=== PATIENT | male | born 1940 | race Caucasian/White ===

== ENCOUNTER → 2018-05-06 | Outpatient (CLI) | payer MEDICARE, BC, OTHER ==
[~2018-05-06] MED LIST: ISOVUE-370 76% 100ML VIAL (Q9967) As Ordered
== END ==
LOC: M RAD 13:44
DX: I70.212 Atherosclerosis of native arteries of extremities with intermittent claudication, left leg (principal)
CPT/HCPCS: Q9967

== ENCOUNTER 2018-05-30 10:10 | Inpatient (IN) | payer MEDICARE, BC, OTHER ==
[2018-05-30] MEDS: DESLORATADINE 5 MG TAB (CLARINEX) PO (09:00)
[2018-05-30] MEDS: OMEGA-3 1000MG CAPSULE PO (09:00)
[2018-05-30 10:54] LABS: BASO # 0.1 10^3/uL (0.0-0.2); BASO % 0.2 % (0.0-1.0); HEMATOCRIT 43.2 % (42.0-52.0); HEMOGLOBIN 14.4 g/dl (13.5-17.5); IMMATURE GRANULOCYTE % 0.9 % (0-3.0); LYMPH # 1.1 10^3/uL (1.5-4.5); LYMPH % 3.9 % (24.0-44.0); MEAN CORPUSCULAR HGB CONC 33.3 g/dl (32.0-36.5); MEAN CORPUSCULAR VOLUME 87.1 fl (80.0-96.0); MONO # 1.5 10^3/uL (0.0-0.8); MONO % 5.3 % (0.0-5.0); NEUTROPHILS % 89.7 % (36.0-66.0); PLATELET COUNT, AUTOMATED 258 10^3/uL (150-450); RED BLOOD COUNT 4.96 10^6/uL (4.30-6.10); RED CELL DISTRIBUTION WIDTH 15.9 % (11.5-14.5); WHITE BLOOD COUNT 27.9 10^3/uL (4.0-10.0)
[2018-05-30 11:00] LABS: PROTHROMBIN TIME 15.4 SECONDS (12.1-14.4)
[2018-05-30 11:01] LABS: PARTIAL THROMBOPLASTIN TIME 24.8 SECONDS (25.4-37.6)
[2018-05-30 11:33] LABS: ALBUMIN 3.1 GM/DL (3.2-5.2); ALBUMIN/GLOBULIN RATIO 0.94 (1.00-1.93); ALKALINE PHOSPHATASE 47 U/L (45-117); ALT/SGPT 114 U/L (12-78); ANION GAP 12 MEQ/L (8-16); AST/SGOT 118 U/L (7-37); BILIRUBIN,TOTAL 1.9 MG/DL (0.2-1.0); BLOOD UREA NITROGEN 28 MG/DL (7-18); CALCIUM LEVEL 9.7 MG/DL (8.8-10.2); CARBON DIOXIDE LEVEL 26 MEQ/L (21-32); CHLORIDE LEVEL 96 MEQ/L (98-107); CPK CREATINE PHOSPHOKINASE 201 U/L (39-308); CREATININE FOR GFR 1.93 MG/DL (0.70-1.30); GLOMERULAR FILTRATION RATE 36.2 (>42); GLUCOSE, FASTING 154 MG/DL (70-100); LIPASE 51 U/L (73-393); MB/CK RELATIVE INDEX 5.77 (< OR =4); POTASSIUM SERUM 4.5 MEQ/L (3.5-5.1); SODIUM LEVEL 134 MEQ/L (136-145); TOTAL PROTEIN 6.4 GM/DL (6.4-8.2); TROPONIN I 2.46 NG/ML (< 0.10)
[2018-05-30 11:39] LABS: NEUTROPHILS # 25.1 10^3/uL (1.8-7.7); POSITIVE DIFF POS FLAG
[2018-05-30 11:53] LABS: LACTIC ACID SEPSIS PROTOCOL 2.2 MMOL/L (0.4-2.0)
[2018-05-30 13:12] LABS: KETONE, URINE AUTO RFX TRACE mg/dL (NEGATIVE); LEUKOCYTE ESTERASE UR AUTO RFX NEGATIVE (NEGATIVE); NITRITE, URINE AUTO RFX NEGATIVE (NEGATIVE); RBC, URINE AUTO RFX 1 /HPF (0-3); SPECIFIC GRAVITY UR AUTO RFX 1.027 (1.002-1.035); SQUAM EPITHELIAL CELL UR AURFX 0 /HPF (0-6); WBC, URINE AUTO RFX 3 /HPF (0-3)
[2018-05-30] MEDS: NS 1,000 ML IV ×4 (13:30→23:30)
[2018-05-30] MEDS: PIPERACILLIN/TAZOBACTAM SOD 3.375 GM in D5W MINI-BAG PLUS 50 ML IV ×2 (13:30→21:30)
[2018-05-30] MEDS: HEPARIN SOD (PORCINE) 5000 UNITS/ML VIAL SC ×2 (14:00→21:32)
[2018-05-30] MEDS ORDERED: LIDOCAINE 2% MDV 20 ML VIAL As Ordered (15:40)
[2018-05-30] MEDS ORDERED: DEXTROSE 50% 50 ML SYRINGE IV (15:45)
[2018-05-30] MEDS ORDERED: GLUCAGON FOR INJ 1 MG VIAL (J1610) SC (15:45)
[2018-05-30] MEDS ORDERED: GLUCOSE 4 GM CHEW TABLET PO (15:45)
[2018-05-30] MEDS ORDERED: IPRATROPIUM 0.5MG/ALBUTEROL 2.5MG INH SOL UD 3ML (DUONEB)(J7620) NEB (17:00)
[2018-05-30] MEDS ORDERED: NITROGLYCERIN 0.4 MG SUBL TABLET SL (17:00)
[2018-05-30] MEDS: ACETAMINOPHEN TAB 650MG DOSE (2X325MG) PO (17:01)
[2018-05-30] MEDS: HumaLOG INSULIN (NovoLOG) PER UNIT SC ×2 (17:30→21:00)
[2018-05-30 18:26] LABS: CPK CREATINE PHOSPHOKINASE 270 U/L (39-308); MB/CK RELATIVE INDEX 3.19 (< OR =4); TROPONIN I 4.06 NG/ML (< 0.10)
[2018-05-30 18:39] LABS: CPK CREATINE PHOSPHOKINASE 270 U/L (39-308); MB/CK RELATIVE INDEX 3.11 (< OR =4)
[2018-05-30] MEDS: LEVOTHYROXINE 125MCG TABLET (0.125MG) PO (20:47)
[2018-05-30] MEDS: ADVAIR HFA 115/21MCG INHALER INH (21:26)
[2018-05-30 21:29] LABS: BEDSIDE GLUCOSE 155 MG/DL (83-110)
[2018-05-30] MEDS: ATORVASTATIN 20 MG TAB PO (21:30)
[2018-05-30] MEDS: CLOPIDOGREL 75 MG TAB PO (21:30)
[2018-05-30] MEDS: MULTIVITAMINS/MINERALS THERAP 1 TAB PO (21:31)
[2018-05-30] MEDS: ASPIRIN 81 MG ENTERIC TAB PO (21:31)
[2018-05-30] MEDS: EZETIMIBE 10 MG TAB (ZETIA) PO (21:31)
[2018-05-30] MEDS: PANTOPRAZOLE 40MG INJ (PROTONIX) (C9113) IV (21:32)
[2018-05-30] MEDS: FENOFIBRATE 145 MG TAB (TRICOR) PO (21:35)
[2018-05-30] MEDS ORDERED: FUROSEMIDE 20 MG/2 ML VIAL (J1940) IV (22:45)
[2018-05-30 22:57] LABS: CPK CREATINE PHOSPHOKINASE 777 U/L (39-308); MB/CK RELATIVE INDEX 1.97 (< OR =4)
[2018-05-30 23:13] LABS: ABG BASE EXCESS 1.2 (-2.0-2.0); ABG O2 SATURATION 90.8 % (95.0-99.0); ABG PARTIAL PRESSURE O2 58.1 mmHg (75.0-100.0); ABG STANDARD HCO3 25.4 MEQ/L (22.0-26.0); ABG TOTAL CO2 26.2 MEQ/L (23.0-31.0); ABG pH (ARTERIAL) 7.448 UNITS (7.350-7.450)
[2018-05-30] MEDS ORDERED: PREVNAR 13 VACCINE SYRINGE (CPT CODE:90670) IM (23:15)
[2018-05-30] MEDS ORDERED: FLUBLOK(EGG FREE)(QUAD)INFLUENZA VACC 0.5ML SYRINGE (90682)18YRS&OLDER IM (23:15)
[2018-05-31 00:42] LABS: ABG BASE EXCESS 2.1 (-2.0-2.0); ABG O2 SATURATION 88.8 % (95.0-99.0); ABG PARTIAL PRESSURE O2 53.3 mmHg (75.0-100.0); ABG STANDARD HCO3 26.1 MEQ/L (22.0-26.0); ABG TOTAL CO2 26.1 MEQ/L (23.0-31.0); ABG pH (ARTERIAL) 7.485 UNITS (7.350-7.450)
[2018-05-31 01:28] LABS: TROPONIN I 4.86 NG/ML (< 0.10)
[2018-05-31] MEDS: FUROSEMIDE 20 MG/2 ML VIAL (J1940) IV (02:30)
[2018-05-31 02:34] LABS: BASO % 0.2 % (0.0-1.0); HEMATOCRIT 41.8 % (42.0-52.0); HEMOGLOBIN 13.6 g/dl (13.5-17.5); IMMATURE GRANULOCYTE % 0.7 % (0-3.0); LYMPH # 0.8 10^3/uL (1.5-4.5); LYMPH % 4.7 % (24.0-44.0); MEAN CORPUSCULAR HEMOGLOBIN 28.8 pg (27.0-33.0); MEAN CORPUSCULAR HGB CONC 32.5 g/dl (32.0-36.5); MEAN CORPUSCULAR VOLUME 88.4 fl (80.0-96.0); MONO # 1.4 10^3/uL (0.0-0.8); MONO % 7.6 % (0.0-5.0); NEUTROPHILS # 15.5 10^3/uL (1.8-7.7); NEUTROPHILS % 86.8 % (36.0-66.0); PLATELET COUNT, AUTOMATED 243 10^3/uL (150-450); RED BLOOD COUNT 4.73 10^6/uL (4.30-6.10); RED CELL DISTRIBUTION WIDTH 16.1 % (11.5-14.5); WHITE BLOOD COUNT 17.8 10^3/uL (4.0-10.0)
[2018-05-31 02:49] LABS: PARTIAL THROMBOPLASTIN TIME 32.5 SECONDS (25.4-37.6)
[2018-05-31 02:59] LABS: LACTIC ACID SEPSIS PROTOCOL 1.7 MMOL/L (0.4-2.0)
[2018-05-31] MEDS: HEPARIN DRIP 25,000 UNITS in APPROPRIATE DILUENT 1 EA IV (02:59)
[2018-05-31 03:11] LABS: ALBUMIN 2.6 GM/DL (3.2-5.2); ALBUMIN/GLOBULIN RATIO 0.55 (1.00-1.93); ALKALINE PHOSPHATASE 47 U/L (45-117); ALT/SGPT 127 U/L (12-78); ANION GAP 10 MEQ/L (8-16); AST/SGOT 156 U/L (7-37); BLOOD UREA NITROGEN 29 MG/DL (7-18); CALCIUM LEVEL 9.4 MG/DL (8.8-10.2); CARBON DIOXIDE LEVEL 29 MEQ/L (21-32); CHLORIDE LEVEL 93 MEQ/L (98-107); CREATININE FOR GFR 1.78 MG/DL (0.70-1.30); GLOMERULAR FILTRATION RATE 39.8 (>42); GLUCOSE, FASTING 137 MG/DL (70-100); POTASSIUM SERUM 3.8 MEQ/L (3.5-5.1); SODIUM LEVEL 132 MEQ/L (136-145); TOTAL PROTEIN 7.3 GM/DL (6.4-8.2)
[2018-05-31 03:12] LABS: ABG BASE EXCESS 2.7 (-2.0-2.0); ABG HCO3 25.6 MEQ/L (22.0-26.0); ABG O2 SATURATION 87.6 % (95.0-99.0); ABG PARTIAL PRESSURE CO2 34.3 mmHg (35.0-45.0); ABG PARTIAL PRESSURE O2 53.7 mmHg (75.0-100.0); ABG STANDARD HCO3 26.6 MEQ/L (22.0-26.0); ABG TOTAL CO2 26.7 MEQ/L (23.0-31.0); ABG pH (ARTERIAL) 7.491 UNITS (7.350-7.450)
[2018-05-31] MEDS: ACETAMINOPHEN TAB 650MG DOSE (2X325MG) PO ×3 (03:44→21:49)
[2018-05-31] MEDS: PIPERACILLIN/TAZOBACTAM SOD 3.375 GM in D5W MINI-BAG PLUS 50 ML IV ×3 (05:57→20:12)
[2018-05-31] MEDS: KETOROLAC 30 MG/ML VIAL (J1885) IV (06:00)
[2018-05-31] MEDS: LEVOTHYROXINE 125MCG TABLET (0.125MG) PO (06:42)
[2018-05-31 06:47] LABS: CPK CREATINE PHOSPHOKINASE 2314 U/L (39-308); MB/CK RELATIVE INDEX 0.91 (< OR =4); TROPONIN I 4.42 NG/ML (< 0.10)
[2018-05-31 06:52] LABS: BEDSIDE GLUCOSE 178 MG/DL (83-110)
[2018-05-31 08:39] LABS: BEDSIDE GLUCOSE 156 MG/DL (83-110)
[2018-05-31] MEDS: HumaLOG INSULIN (NovoLOG) PER UNIT SC ×4 (08:43→20:12)
[2018-05-31] MEDS: MULTIVITAMINS/MINERALS THERAP 1 TAB PO (08:44)
[2018-05-31] MEDS: CLOPIDOGREL 75 MG TAB PO (08:44)
[2018-05-31] MEDS: EZETIMIBE 10 MG TAB (ZETIA) PO (08:44)
[2018-05-31] MEDS: DESLORATADINE 5 MG TAB (CLARINEX) PO (08:44)
[2018-05-31] MEDS: ASPIRIN 81 MG ENTERIC TAB PO (08:45)
[2018-05-31] MEDS: OMEGA-3 1000MG CAPSULE PO (08:45)
[2018-05-31] MEDS: ADVAIR HFA 115/21MCG INHALER INH ×2 (08:55→21:00)
[2018-05-31 09:01] LABS: ABG BASE EXCESS -0.1 (-2.0-2.0); ABG PARTIAL PRESSURE O2 58.9 mmHg (75.0-100.0); ABG STANDARD HCO3 24.3 MEQ/L (22.0-26.0); ABG TOTAL CO2 25.1 MEQ/L (23.0-31.0); ABG pH (ARTERIAL) 7.429 UNITS (7.350-7.450)
[2018-05-31 11:08] LABS: PARTIAL THROMBOPLASTIN TIME 49.1 SECONDS (25.4-37.6)
[2018-05-31] MEDS: HEPARIN SOD (PORCINE) 5000 UNITS/ML VIAL IV (11:26)
[2018-05-31 11:52] LABS: BEDSIDE GLUCOSE 136 MG/DL (83-110)
[2018-05-31] MEDS: SODIUM CHLORIDE 0.9% 1000ML IV (12:30)
[2018-05-31] MEDS: NS 1,000 ML IV (12:57)
[2018-05-31] MEDS: PANTOPRAZOLE 40MG INJ (PROTONIX) (C9113) IV (15:21)
[2018-05-31 17:05] LABS: BEDSIDE GLUCOSE 173 MG/DL (83-110)
[2018-05-31 18:07] LABS: PARTIAL THROMBOPLASTIN TIME 63.3 SECONDS (25.4-37.6)
[2018-05-31 19:41] LABS: BEDSIDE GLUCOSE 126 MG/DL (83-110)
[2018-05-31] MEDS: FENOFIBRATE 145 MG TAB (TRICOR) PO (20:11)
[2018-05-31] MEDS: ATORVASTATIN 20 MG TAB PO (20:12)
[2018-05-31 20:44] LABS: TROPONIN I 2.69 NG/ML (< 0.10)
[2018-06-01] MEDS: HEPARIN DRIP 25,000 UNITS in APPROPRIATE DILUENT 1 EA IV ×2 (00:39→15:31)
[2018-06-01 01:12] LABS: PARTIAL THROMBOPLASTIN TIME 64.4 SECONDS (25.4-37.6)
[2018-06-01] MEDS: HEPARIN SOD (PORCINE) 5000 UNITS/ML VIAL IV (01:28)
[2018-06-01 04:52] LABS: BASO % 0.1 % (0.0-1.0); EOS # 0.1 10^3/uL (0.0-0.50); EOS % 0.5 % (0.0-3.0); HEMATOCRIT 35.3 % (42.0-52.0); IMMATURE GRANULOCYTE % 1.3 % (0-3.0); LYMPH # 0.7 10^3/uL (1.5-4.5); LYMPH % 4.9 % (24.0-44.0); MEAN CORPUSCULAR HEMOGLOBIN 28.4 pg (27.0-33.0); MEAN CORPUSCULAR HGB CONC 32.3 g/dl (32.0-36.5); MONO # 1.2 10^3/uL (0.0-0.8); MONO % 8.3 % (0.0-5.0); NEUTROPHILS % 84.9 % (36.0-66.0); PLATELET COUNT, AUTOMATED 208 10^3/uL (150-450); RED BLOOD COUNT 4.01 10^6/uL (4.30-6.10); WHITE BLOOD COUNT 14.2 10^3/uL (4.0-10.0)
[2018-06-01 05:08] LABS: HEMOGLOBIN 11.4 g/dl (13.5-17.5)
[2018-06-01] MEDS: LEVOTHYROXINE 125MCG TABLET (0.125MG) PO (05:10)
[2018-06-01] MEDS: PIPERACILLIN/TAZOBACTAM SOD 3.375 GM in D5W MINI-BAG PLUS 50 ML IV ×3 (05:11→20:13)
[2018-06-01 05:31] LABS: ALBUMIN 1.9 GM/DL (3.2-5.2); ALBUMIN/GLOBULIN RATIO 0.44 (1.00-1.93); ALKALINE PHOSPHATASE 49 U/L (45-117); ALT/SGPT 92 U/L (12-78); ANION GAP 9 MEQ/L (8-16); AST/SGOT 123 U/L (7-37); BILIRUBIN,TOTAL 0.5 MG/DL (0.2-1.0); BLOOD UREA NITROGEN 32 MG/DL (7-18); CALCIUM LEVEL 8.1 MG/DL (8.8-10.2); CARBON DIOXIDE LEVEL 28 MEQ/L (21-32); CHLORIDE LEVEL 93 MEQ/L (98-107); CREATININE FOR GFR 1.65 MG/DL (0.70-1.30); GLOMERULAR FILTRATION RATE 43.4 (>42); GLUCOSE, FASTING 114 MG/DL (70-100); MAGNESIUM LEVEL 3.3 MG/DL (1.8-2.4); POTASSIUM SERUM 3.4 MEQ/L (3.5-5.1); SODIUM LEVEL 130 MEQ/L (136-145); TOTAL PROTEIN 6.2 GM/DL (6.4-8.2)
[2018-06-01] MEDS: ACETAMINOPHEN TAB 650MG DOSE (2X325MG) PO ×2 (05:51→19:04)
[2018-06-01] MEDS: POTASSIUM CHLORIDE INJ 10 MEQ in NS 1,000 ML IV ×2 (06:36→20:14)
[2018-06-01 06:40] LABS: TROPONIN I 2.03 NG/ML (< 0.10)
[2018-06-01] MEDS: HumaLOG INSULIN (NovoLOG) PER UNIT SC ×4 (08:28→20:14)
[2018-06-01] MEDS: DESLORATADINE 5 MG TAB (CLARINEX) PO (08:29)
[2018-06-01] MEDS: CLOPIDOGREL 75 MG TAB PO (08:30)
[2018-06-01] MEDS: EZETIMIBE 10 MG TAB (ZETIA) PO (08:30)
[2018-06-01] MEDS: ASPIRIN 81 MG ENTERIC TAB PO (08:30)
[2018-06-01] MEDS: MULTIVITAMINS/MINERALS THERAP 1 TAB PO (08:30)
[2018-06-01] MEDS: OMEGA-3 1000MG CAPSULE PO (08:30)
[2018-06-01] MEDS: ADVAIR HFA 115/21MCG INHALER INH ×2 (09:44→20:40)
[2018-06-01 12:01] LABS: BEDSIDE GLUCOSE 165 MG/DL (83-110)
[2018-06-01] MEDS: DOCUSATE SODIUM 100 MG CAP PO ×2 (12:09→20:14)
[2018-06-01 14:11] LABS: PARTIAL THROMBOPLASTIN TIME 66.9 SECONDS (25.4-37.6)
[2018-06-01] MEDS: PANTOPRAZOLE 40MG INJ (PROTONIX) (C9113) IV (15:29)
[2018-06-01 17:32] LABS: BEDSIDE GLUCOSE 128 MG/DL (83-110)
[2018-06-01 19:20] LABS: BEDSIDE GLUCOSE 163 MG/DL (83-110)
[2018-06-01] MEDS: FENOFIBRATE 145 MG TAB (TRICOR) PO (20:13)
[2018-06-01] MEDS: ATORVASTATIN 20 MG TAB PO (20:13)
[2018-06-02] MEDS: ACETAMINOPHEN TAB 650MG DOSE (2X325MG) PO ×3 (02:22→20:47)
[2018-06-02] MEDS: PIPERACILLIN/TAZOBACTAM SOD 3.375 GM in D5W MINI-BAG PLUS 50 ML IV (04:38)
[2018-06-02 04:47] LABS: BASO % 0.3 % (0.0-1.0); EOS % 0.1 % (0.0-3.0); HEMATOCRIT 32.9 % (42.0-52.0); HEMOGLOBIN 10.8 g/dl (13.5-17.5); IMMATURE GRANULOCYTE % 2.3 % (0-3.0); LYMPH # 0.7 10^3/uL (1.5-4.5); LYMPH % 5.7 % (24.0-44.0); MEAN CORPUSCULAR HEMOGLOBIN 28.7 pg (27.0-33.0); MEAN CORPUSCULAR HGB CONC 32.8 g/dl (32.0-36.5); MEAN CORPUSCULAR VOLUME 87.5 fl (80.0-96.0); MONO # 1.1 10^3/uL (0.0-0.8); MONO % 9.4 % (0.0-5.0); NEUTROPHILS # 9.8 10^3/uL (1.8-7.7); NEUTROPHILS % 82.2 % (36.0-66.0); PLATELET COUNT, AUTOMATED 216 10^3/uL (150-450); RED BLOOD COUNT 3.76 10^6/uL (4.30-6.10); RED CELL DISTRIBUTION WIDTH 16.1 % (11.5-14.5); WHITE BLOOD COUNT 11.8 10^3/uL (4.0-10.0)
[2018-06-02 05:12] LABS: PARTIAL THROMBOPLASTIN TIME 76.7 SECONDS (25.4-37.6)
[2018-06-02] MEDS: LEVOTHYROXINE 125MCG TABLET (0.125MG) PO (05:52)
[2018-06-02] MEDS: HEPARIN DRIP 25,000 UNITS in APPROPRIATE DILUENT 1 EA IV ×2 (05:54→21:45)
[2018-06-02 05:56] LABS: ALBUMIN 1.7 GM/DL (3.2-5.2); ALBUMIN/GLOBULIN RATIO 0.49 (1.00-1.93); ALKALINE PHOSPHATASE 54 U/L (45-117); ALT/SGPT 82 U/L (12-78); ANION GAP 8 MEQ/L (8-16); AST/SGOT 94 U/L (7-37); BILIRUBIN,TOTAL 0.6 MG/DL (0.2-1.0); BLOOD UREA NITROGEN 25 MG/DL (7-18); CALCIUM LEVEL 7.4 MG/DL (8.8-10.2); CARBON DIOXIDE LEVEL 27 MEQ/L (21-32); CHLORIDE LEVEL 102 MEQ/L (98-107); CREATININE FOR GFR 1.17 MG/DL (0.70-1.30); GLOMERULAR FILTRATION RATE > 60.0 (>42); GLUCOSE, FASTING 135 MG/DL (70-100); MAGNESIUM LEVEL 3.1 MG/DL (1.8-2.4); POTASSIUM SERUM 4.4 MEQ/L (3.5-5.1); SODIUM LEVEL 137 MEQ/L (136-145); TOTAL PROTEIN 5.2 GM/DL (6.4-8.2)
[2018-06-02] MEDS: HumaLOG INSULIN (NovoLOG) PER UNIT SC ×4 (07:45→21:00)
[2018-06-02] MEDS: ADVAIR HFA 115/21MCG INHALER INH ×2 (08:56→20:52)
[2018-06-02] MEDS: DOCUSATE SODIUM 100 MG CAP PO ×2 (09:00→20:48)
[2018-06-02] MEDS: DESLORATADINE 5 MG TAB (CLARINEX) PO (09:13)
[2018-06-02] MEDS: CLOPIDOGREL 75 MG TAB PO (09:13)
[2018-06-02] MEDS: OMEGA-3 1000MG CAPSULE PO (09:13)
[2018-06-02] MEDS: ASPIRIN 81 MG ENTERIC TAB PO (09:13)
[2018-06-02] MEDS: MULTIVITAMINS/MINERALS THERAP 1 TAB PO (09:14)
[2018-06-02] MEDS: EZETIMIBE 10 MG TAB (ZETIA) PO (09:14)
[2018-06-02 12:11] LABS: BEDSIDE GLUCOSE 126 MG/DL (83-110)
[2018-06-02] MEDS: PANTOPRAZOLE 40MG INJ (PROTONIX) (C9113) IV (16:51)
[2018-06-02] MEDS: LevoFLOXacin 500 MG TABLET PO (16:51)
[2018-06-02 18:03] LABS: BEDSIDE GLUCOSE 117 MG/DL (83-110)
[2018-06-02] MEDS: ATORVASTATIN 20 MG TAB PO (20:46)
[2018-06-02] MEDS: FENOFIBRATE 145 MG TAB (TRICOR) PO (20:47)
[2018-06-02 21:56] LABS: BEDSIDE GLUCOSE 162 MG/DL (83-110)
[2018-06-02] MEDS ORDERED: PERCOCET 5MG/325MG TAB PO (22:15)
[2018-06-03] MEDS: ACETAMINOPHEN TAB 650MG DOSE (2X325MG) PO ×2 (04:06→15:00)
[2018-06-03 05:08] LABS: ADD MANUAL DIFFER YES; DIFF SLIDE NUMBER 21; HEMATOCRIT 35.4 % (42.0-52.0); HEMOGLOBIN 11.5 g/dl (13.5-17.5); MEAN CORPUSCULAR HEMOGLOBIN 28.4 pg (27.0-33.0); MEAN CORPUSCULAR HGB CONC 32.5 g/dl (32.0-36.5); MEAN CORPUSCULAR VOLUME 87.4 fl (80.0-96.0); PLATELET COUNT, AUTOMATED 270 10^3/uL (150-450); POS COUNT POS FLAG; POSITIVE MORPH POS FLAG; RED BLOOD COUNT 4.05 10^6/uL (4.30-6.10); RED CELL DISTRIBUTION WIDTH 16.5 % (11.5-14.5); WHITE BLOOD COUNT 14.2 10^3/uL (4.0-10.0)
[2018-06-03 05:20] LABS: PARTIAL THROMBOPLASTIN TIME 67.1 SECONDS (25.4-37.6)
[2018-06-03 05:35] LABS: ATYPICAL LYMPH 2 % (0-5); BASOPHILS 1 % (0-4); EOSINOPHILS 1 % (0-5); LYMPHOCYTES 12 % (16-52); METAMYELOCYTES 2 % (0-0); MONOCYTES 9 % (0-8); MYELOCYTES 1 % (0-0); NEUTROPHILS 72 % (35-75); PLATELET CLUMPS MODERATE AMT; PLATELET ESTIMATE NORMAL (NORMAL); SMUDGE CELLS 1+
[2018-06-03 05:36] LABS: ANISOCYTOSIS 1+
[2018-06-03 05:43] LABS: ALBUMIN 1.9 GM/DL (3.2-5.2); ALBUMIN/GLOBULIN RATIO 0.56 (1.00-1.93); ALKALINE PHOSPHATASE 55 U/L (45-117); ALT/SGPT 74 U/L (12-78); ANION GAP 7 MEQ/L (8-16); AST/SGOT 67 U/L (7-37); BILIRUBIN,TOTAL 0.5 MG/DL (0.2-1.0); BLOOD UREA NITROGEN 20 MG/DL (7-18); CALCIUM LEVEL 7.9 MG/DL (8.8-10.2); CARBON DIOXIDE LEVEL 27 MEQ/L (21-32); CHLORIDE LEVEL 105 MEQ/L (98-107); GLOMERULAR FILTRATION RATE > 60.0 (>42); GLUCOSE, FASTING 117 MG/DL (70-100); MAGNESIUM LEVEL 2.7 MG/DL (1.8-2.4); POTASSIUM SERUM 4.1 MEQ/L (3.5-5.1); SODIUM LEVEL 139 MEQ/L (136-145); TOTAL PROTEIN 5.3 GM/DL (6.4-8.2); TROPONIN I 0.48 NG/ML (< 0.10)
[2018-06-03] MEDS: LevoFLOXacin 500 MG TABLET PO (05:55)
[2018-06-03] MEDS: LEVOTHYROXINE 125MCG TABLET (0.125MG) PO (05:55)
[2018-06-03] MEDS: SLF 3 ML SYR IV ×3 (06:00→21:07)
[2018-06-03] MEDS ORDERED: SLF 3 ML SYR IV (06:00)
[2018-06-03] MEDS: ADVAIR HFA 115/21MCG INHALER INH ×2 (07:28→20:53)
[2018-06-03] MEDS: HumaLOG INSULIN (NovoLOG) PER UNIT SC ×4 (07:52→20:33)
[2018-06-03] MEDS: DESLORATADINE 5 MG TAB (CLARINEX) PO (08:56)
[2018-06-03] MEDS: ASPIRIN 81 MG ENTERIC TAB PO (08:56)
[2018-06-03] MEDS: MULTIVITAMINS/MINERALS THERAP 1 TAB PO (08:56)
[2018-06-03] MEDS: OMEGA-3 1000MG CAPSULE PO (08:56)
[2018-06-03] MEDS: CLOPIDOGREL 75 MG TAB PO (08:56)
[2018-06-03] MEDS: DOCUSATE SODIUM 100 MG CAP PO ×2 (08:57→20:34)
[2018-06-03 11:07] LABS: HEPATITIS A ANTIBODY IGM NEGATIVE (NEGATIVE); HEPATITIS B CORE ANTIBODY IGM NEGATIVE (NEGATIVE); HEPATITIS B SURFACE ANTIGEN NEGATIVE (NEGATIVE)
[2018-06-03 11:07] LABS: HEPATITIS C VIRUS ABY INDEX < 0.0 INDEX (<0.8)
[2018-06-03 11:41] LABS: BEDSIDE GLUCOSE 112 MG/DL (83-110)
[2018-06-03] MEDS: HEPARIN DRIP 25,000 UNITS in APPROPRIATE DILUENT 1 EA IV (13:23)
[2018-06-03] MEDS: PANTOPRAZOLE 40MG INJ (PROTONIX) (C9113) IV (15:00)
[2018-06-03 16:43] LABS: BEDSIDE GLUCOSE 120 MG/DL (83-110)
[2018-06-03 20:32] LABS: BEDSIDE GLUCOSE 104 MG/DL (83-110)
[2018-06-03] MEDS: PERCOCET 5MG/325MG TAB PO (20:35)
[2018-06-03] MEDS: ATORVASTATIN 20 MG TAB PO (20:35)
[2018-06-04] MEDS: RAMELTEON 8 MG TAB (ROZEREM) PO ×2 (01:38→20:30)
[2018-06-04] MEDS: HEPARIN DRIP 25,000 UNITS in APPROPRIATE DILUENT 1 EA IV (04:25)
[2018-06-04] MEDS: LEVOTHYROXINE 125MCG TABLET (0.125MG) PO (05:43)
[2018-06-04] MEDS: LevoFLOXacin 500 MG TABLET PO (05:43)
[2018-06-04] MEDS: SLF 3 ML SYR IV ×3 (05:43→21:03)
[2018-06-04 06:04] LABS: HEMATOCRIT 37.1 % (42.0-52.0); HEMOGLOBIN 11.9 g/dl (13.5-17.5); MEAN CORPUSCULAR HEMOGLOBIN 28.4 pg (27.0-33.0); MEAN CORPUSCULAR HGB CONC 32.1 g/dl (32.0-36.5); MEAN CORPUSCULAR VOLUME 88.5 fl (80.0-96.0); PLATELET COUNT, AUTOMATED 364 10^3/uL (150-450); RED BLOOD COUNT 4.19 10^6/uL (4.30-6.10); RED CELL DISTRIBUTION WIDTH 16.6 % (11.5-14.5); WHITE BLOOD COUNT 17.1 10^3/uL (4.0-10.0)
[2018-06-04 06:08] LABS: POS COUNT POS FLAG; POSITIVE MORPH POS FLAG
[2018-06-04 06:09] LABS: ADD MANUAL DIFFER YES; DIFF SLIDE NUMBER 16
[2018-06-04 06:13] LABS: PARTIAL THROMBOPLASTIN TIME 53.7 SECONDS (25.4-37.6)
[2018-06-04] MEDS: HEPARIN SOD (PORCINE) 5000 UNITS/ML VIAL IV (06:33)
[2018-06-04 06:37] LABS: ALBUMIN 1.8 GM/DL (3.2-5.2); ALBUMIN/GLOBULIN RATIO 0.39 (1.00-1.93); ALKALINE PHOSPHATASE 60 U/L (45-117); ALT/SGPT 62 U/L (12-78); ANION GAP 8 MEQ/L (8-16); AST/SGOT 47 U/L (7-37); BILIRUBIN,TOTAL 0.5 MG/DL (0.2-1.0); BLOOD UREA NITROGEN 21 MG/DL (7-18); CALCIUM LEVEL 8.4 MG/DL (8.8-10.2); CARBON DIOXIDE LEVEL 23 MEQ/L (21-32); CHLORIDE LEVEL 105 MEQ/L (98-107); CREATININE FOR GFR 0.89 MG/DL (0.70-1.30); GLOMERULAR FILTRATION RATE > 60.0 (>42); GLUCOSE, FASTING 115 MG/DL (70-100); MAGNESIUM LEVEL 2.1 MG/DL (1.8-2.4); POTASSIUM SERUM 4.1 MEQ/L (3.5-5.1); SODIUM LEVEL 136 MEQ/L (136-145); TOTAL PROTEIN 6.4 GM/DL (6.4-8.2)
[2018-06-04 07:06] LABS: ANISOCYTOSIS 1+; EOSINOPHILS 3 % (0-5); LYMPHOCYTES 10 % (16-52); METAMYELOCYTES 1 % (0-0); MONOCYTES 5 % (0-8); MYELOCYTES 5 % (0-0); NEUTROPHILS 76 % (35-75); PLATELET ESTIMATE NORMAL (NORMAL)
[2018-06-04] MEDS: ADVAIR HFA 115/21MCG INHALER INH ×2 (07:33→20:58)
[2018-06-04] MEDS: DOCUSATE SODIUM 100 MG CAP PO ×2 (08:23→20:30)
[2018-06-04] MEDS: ASPIRIN 81 MG ENTERIC TAB PO (08:23)
[2018-06-04] MEDS: HumaLOG INSULIN (NovoLOG) PER UNIT SC ×4 (08:23→21:00)
[2018-06-04] MEDS: CLOPIDOGREL 75 MG TAB PO (08:23)
[2018-06-04] MEDS: DESLORATADINE 5 MG TAB (CLARINEX) PO (08:23)
[2018-06-04] MEDS: OMEGA-3 1000MG CAPSULE PO (08:23)
[2018-06-04] MEDS: MULTIVITAMINS/MINERALS THERAP 1 TAB PO (08:23)
[2018-06-04] MEDS ORDERED: ISOVUE-370 76% 100ML VIAL (Q9967) As Ordered (09:08)
[2018-06-04] MEDS: GASTROGRAFIN SOLUTION 30ML PO ×2 (09:29→09:56)
[2018-06-04 11:44] LABS: BEDSIDE GLUCOSE 122 MG/DL (83-110)
[2018-06-04 13:26] LABS: PARTIAL THROMBOPLASTIN TIME 88.9 SECONDS (25.4-37.6)
[2018-06-04 15:13] LABS: LDH LACTATE DEHYDROGENASE 209 U/L (87-241)
[2018-06-04 16:27] LABS: BEDSIDE GLUCOSE 118 MG/DL (83-110)
[2018-06-04] MEDS: ENOXAPARIN 40 MG/0.4 ML SYRINGE (J1650) SC (17:15)
[2018-06-04] MEDS: PANTOPRAZOLE 40MG TAB (PROTONIX) PO (17:15)
[2018-06-04] MEDS: PERCOCET 5MG/325MG TAB PO (18:57)
[2018-06-04] MEDS: ATORVASTATIN 20 MG TAB PO (20:30)
[2018-06-04 20:47] LABS: BEDSIDE GLUCOSE 150 MG/DL (83-110)
[2018-06-05] MEDS: PERCOCET 5MG/325MG TAB PO ×2 (00:07→20:05)
[2018-06-05] MEDS: SLF 3 ML SYR IV ×3 (05:05→21:38)
[2018-06-05] MEDS: LevoFLOXacin 500 MG TABLET PO (05:38)
[2018-06-05] MEDS: LEVOTHYROXINE 125MCG TABLET (0.125MG) PO (05:38)
[2018-06-05 06:05] LABS: HEMOGLOBIN 12.7 g/dl (13.5-17.5); MEAN CORPUSCULAR HEMOGLOBIN 28.9 pg (27.0-33.0); MEAN CORPUSCULAR HGB CONC 31.8 g/dl (32.0-36.5); MEAN CORPUSCULAR VOLUME 91.1 fl (80.0-96.0); PLATELET COUNT, AUTOMATED 426 10^3/uL (150-450); RED BLOOD COUNT 4.39 10^6/uL (4.30-6.10); RED CELL DISTRIBUTION WIDTH 16.7 % (11.5-14.5); WHITE BLOOD COUNT 17.4 10^3/uL (4.0-10.0)
[2018-06-05 06:10] LABS: POS COUNT POS FLAG; POSITIVE MORPH POS FLAG
[2018-06-05 06:11] LABS: ADD MANUAL DIFFER YES; DIFF SLIDE NUMBER 10
[2018-06-05 06:31] LABS: ALBUMIN/GLOBULIN RATIO 0.42 (1.00-1.93); ALKALINE PHOSPHATASE 69 U/L (45-117); ALT/SGPT 53 U/L (12-78); ANION GAP 7 MEQ/L (8-16); AST/SGOT 32 U/L (7-37); BILIRUBIN,TOTAL 0.4 MG/DL (0.2-1.0); BLOOD UREA NITROGEN 18 MG/DL (7-18); CALCIUM LEVEL 9.3 MG/DL (8.8-10.2); CARBON DIOXIDE LEVEL 24 MEQ/L (21-32); CHLORIDE LEVEL 106 MEQ/L (98-107); CREATININE FOR GFR 0.94 MG/DL (0.70-1.30); GLOMERULAR FILTRATION RATE > 60.0 (>42); GLUCOSE, FASTING 135 MG/DL (70-100); MAGNESIUM LEVEL 2.1 MG/DL (1.8-2.4); POTASSIUM SERUM 4.1 MEQ/L (3.5-5.1); SODIUM LEVEL 137 MEQ/L (136-145); TOTAL PROTEIN 6.8 GM/DL (6.4-8.2)
[2018-06-05 06:45] LABS: ATYPICAL LYMPH 4 % (0-5); BANDS 5 % (< 11); BASOPHILS 2 % (0-4); EOSINOPHILS 1 % (0-5); LYMPHOCYTES 8 % (16-52); METAMYELOCYTES 2 % (0-0); MONOCYTES 8 % (0-8); MYELOCYTES 1 % (0-0); NEUTROPHILS 69 % (35-75)
[2018-06-05 06:46] LABS: PLATELET ESTIMATE INCREASED (NORMAL)
[2018-06-05 06:47] LABS: ANISOCYTOSIS 1+
[2018-06-05] MEDS: ADVAIR HFA 115/21MCG INHALER INH ×2 (07:42→20:56)
[2018-06-05] MEDS: MULTIVITAMINS/MINERALS THERAP 1 TAB PO (08:08)
[2018-06-05] MEDS: HumaLOG INSULIN (NovoLOG) PER UNIT SC ×4 (08:08→20:45)
[2018-06-05] MEDS: DESLORATADINE 5 MG TAB (CLARINEX) PO (08:08)
[2018-06-05] MEDS: PANTOPRAZOLE 40MG TAB (PROTONIX) PO (08:08)
[2018-06-05] MEDS: DOCUSATE SODIUM 100 MG CAP PO ×2 (08:08→20:05)
[2018-06-05] MEDS: ASPIRIN 81 MG ENTERIC TAB PO (08:08)
[2018-06-05] MEDS: OMEGA-3 1000MG CAPSULE PO (08:08)
[2018-06-05] MEDS: ACETAMINOPHEN TAB 650MG DOSE (2X325MG) PO (10:33)
[2018-06-05] MEDS: ENOXAPARIN 40 MG/0.4 ML SYRINGE (J1650) SC (10:33)
[2018-06-05 12:19] LABS: BEDSIDE GLUCOSE 122 MG/DL (83-110)
[2018-06-05] MEDS: CLOPIDOGREL 75 MG TAB PO (12:27)
[2018-06-05 16:19] LABS: BEDSIDE GLUCOSE 93 MG/DL (83-110)
[2018-06-05] MEDS: ATORVASTATIN 20 MG TAB PO (20:05)
[2018-06-05 20:39] LABS: BEDSIDE GLUCOSE 119 MG/DL (83-110)
[2018-06-05] MEDS: BECLOMETHASONE INH (20:56)
[2018-06-05] MEDS: RAMELTEON 8 MG TAB (ROZEREM) PO (21:00)
[2018-06-06] MEDS: ACETAMINOPHEN TAB 650MG DOSE (2X325MG) PO (04:40)
[2018-06-06] MEDS: SLF 3 ML SYR IV ×3 (05:00→21:50)
[2018-06-06 05:19] LABS: HEMATOCRIT 36.8 % (42.0-52.0); HEMOGLOBIN 11.7 g/dl (13.5-17.5); MEAN CORPUSCULAR HEMOGLOBIN 28.4 pg (27.0-33.0); MEAN CORPUSCULAR HGB CONC 31.8 g/dl (32.0-36.5); MEAN CORPUSCULAR VOLUME 89.3 fl (80.0-96.0); PLATELET COUNT, AUTOMATED 475 10^3/uL (150-450); RED BLOOD COUNT 4.12 10^6/uL (4.30-6.10); RED CELL DISTRIBUTION WIDTH 16.7 % (11.5-14.5); WHITE BLOOD COUNT 16.8 10^3/uL (4.0-10.0)
[2018-06-06] MEDS: LEVOTHYROXINE 125MCG TABLET (0.125MG) PO (05:20)
[2018-06-06] MEDS: LevoFLOXacin 500 MG TABLET PO (05:20)
[2018-06-06 05:21] LABS: ADD MANUAL DIFFER YES; DIFF SLIDE NUMBER 10; POS COUNT POS FLAG; POSITIVE MORPH POS FLAG
[2018-06-06 05:42] LABS: ALBUMIN 1.9 GM/DL (3.2-5.2); ALBUMIN/GLOBULIN RATIO 0.42 (1.00-1.93); ALKALINE PHOSPHATASE 66 U/L (45-117); ALT/SGPT 46 U/L (12-78); ANION GAP 7 MEQ/L (8-16); AST/SGOT 28 U/L (7-37); BILIRUBIN,TOTAL 0.4 MG/DL (0.2-1.0); BLOOD UREA NITROGEN 18 MG/DL (7-18); CARBON DIOXIDE LEVEL 27 MEQ/L (21-32); CHLORIDE LEVEL 105 MEQ/L (98-107); CREATININE FOR GFR 1.02 MG/DL (0.70-1.30); GLOMERULAR FILTRATION RATE > 60.0 (>42); GLUCOSE, FASTING 126 MG/DL (70-100); POTASSIUM SERUM 4.3 MEQ/L (3.5-5.1); SODIUM LEVEL 139 MEQ/L (136-145); TOTAL PROTEIN 6.4 GM/DL (6.4-8.2)
[2018-06-06 06:17] LABS: BANDS 2 % (< 11); EOSINOPHILS 2 % (0-5); LYMPHOCYTES 18 % (16-52); METAMYELOCYTES 6 % (0-0); MONOCYTES 5 % (0-8); MYELOCYTES 1 % (0-0); NEUTROPHILS 66 % (35-75)
[2018-06-06 06:18] LABS: ANISOCYTOSIS 1+; PLATELET ESTIMATE INCREASED (NORMAL)
[2018-06-06] MEDS: BECLOMETHASONE INH ×2 (08:31→20:18)
[2018-06-06] MEDS: ADVAIR HFA 115/21MCG INHALER INH ×2 (08:31→20:21)
[2018-06-06] MEDS: ENOXAPARIN 40 MG/0.4 ML SYRINGE (J1650) SC (09:27)
[2018-06-06] MEDS: HumaLOG INSULIN (NovoLOG) PER UNIT SC ×4 (09:28→21:00)
[2018-06-06] MEDS: DESLORATADINE 5 MG TAB (CLARINEX) PO (09:29)
[2018-06-06] MEDS: DOCUSATE SODIUM 100 MG CAP PO ×2 (09:29→21:51)
[2018-06-06] MEDS: PANTOPRAZOLE 40MG TAB (PROTONIX) PO (09:29)
[2018-06-06] MEDS: OMEGA-3 1000MG CAPSULE PO (09:30)
[2018-06-06] MEDS: CLOPIDOGREL 75 MG TAB PO (09:30)
[2018-06-06] MEDS: MULTIVITAMINS/MINERALS THERAP 1 TAB PO (09:30)
[2018-06-06] MEDS: ASPIRIN 81 MG ENTERIC TAB PO (09:30)
[2018-06-06 12:45] LABS: BEDSIDE GLUCOSE 161 MG/DL (83-110)
[2018-06-06 17:47] LABS: BEDSIDE GLUCOSE 133 MG/DL (83-110)
[2018-06-06 21:42] LABS: BEDSIDE GLUCOSE 145 MG/DL (83-110)
[2018-06-06] MEDS: ATORVASTATIN 20 MG TAB PO (21:51)
[2018-06-06] MEDS: RAMELTEON 8 MG TAB (ROZEREM) PO (21:51)
[2018-06-06] MEDS: PERCOCET 5MG/325MG TAB PO (21:58)
[2018-06-07] MEDS: PERCOCET 5MG/325MG TAB PO (04:26)
[2018-06-07] MEDS: SLF 3 ML SYR IV ×3 (06:00→21:33)
[2018-06-07] MEDS: LevoFLOXacin 500 MG TABLET PO (06:06)
[2018-06-07] MEDS: LEVOTHYROXINE 125MCG TABLET (0.125MG) PO (06:06)
[2018-06-07 07:28] LABS: HEMATOCRIT 36.7 % (42.0-52.0); HEMOGLOBIN 11.7 g/dl (13.5-17.5); MEAN CORPUSCULAR HEMOGLOBIN 28.4 pg (27.0-33.0); MEAN CORPUSCULAR HGB CONC 31.9 g/dl (32.0-36.5); MEAN CORPUSCULAR VOLUME 89.1 fl (80.0-96.0); PLATELET COUNT, AUTOMATED 498 10^3/uL (150-450); RED BLOOD COUNT 4.12 10^6/uL (4.30-6.10); RED CELL DISTRIBUTION WIDTH 16.8 % (11.5-14.5); WHITE BLOOD COUNT 15.8 10^3/uL (4.0-10.0)
[2018-06-07] MEDS: ADVAIR HFA 115/21MCG INHALER INH ×2 (07:53→20:53)
[2018-06-07] MEDS: BECLOMETHASONE INH ×2 (07:53→20:53)
[2018-06-07 07:59] LABS: ANION GAP 7 MEQ/L (8-16); BLOOD UREA NITROGEN 17 MG/DL (7-18); CARBON DIOXIDE LEVEL 24 MEQ/L (21-32); CHLORIDE LEVEL 106 MEQ/L (98-107); CREATININE FOR GFR 0.79 MG/DL (0.70-1.30); GLOMERULAR FILTRATION RATE > 60.0 (>42); GLUCOSE, FASTING 168 MG/DL (70-100); POTASSIUM SERUM 4.2 MEQ/L (3.5-5.1); SODIUM LEVEL 137 MEQ/L (136-145)
[2018-06-07] MEDS: FUROSEMIDE 40 MG/4 ML VIAL (J1940) IV (09:15)
[2018-06-07] MEDS: DESLORATADINE 5 MG TAB (CLARINEX) PO (09:15)
[2018-06-07] MEDS: OMEGA-3 1000MG CAPSULE PO (09:16)
[2018-06-07] MEDS: DOCUSATE SODIUM 100 MG CAP PO ×2 (09:16→21:31)
[2018-06-07] MEDS: ASPIRIN 81 MG ENTERIC TAB PO (09:16)
[2018-06-07] MEDS: CLOPIDOGREL 75 MG TAB PO (09:16)
[2018-06-07] MEDS: MULTIVITAMINS/MINERALS THERAP 1 TAB PO (09:17)
[2018-06-07] MEDS: PANTOPRAZOLE 40MG TAB (PROTONIX) PO (09:17)
[2018-06-07] MEDS: ENOXAPARIN 40 MG/0.4 ML SYRINGE (J1650) SC (09:18)
[2018-06-07] MEDS: HumaLOG INSULIN (NovoLOG) PER UNIT SC ×4 (09:19→21:00)
[2018-06-07 11:21] LABS: BEDSIDE GLUCOSE 181 MG/DL (83-110)
[2018-06-07 16:07] LABS: BEDSIDE GLUCOSE 146 MG/DL (83-110)
[2018-06-07 20:23] LABS: BEDSIDE GLUCOSE 149 MG/DL (83-110)
[2018-06-07] MEDS: ATORVASTATIN 20 MG TAB PO (21:31)
[2018-06-07] MEDS: RAMELTEON 8 MG TAB (ROZEREM) PO (21:31)
[2018-06-08] MEDS: LEVOTHYROXINE 125MCG TABLET (0.125MG) PO (06:17)
[2018-06-08] MEDS: LevoFLOXacin 500 MG TABLET PO (06:17)
[2018-06-08] MEDS: SLF 3 ML SYR IV ×3 (06:18→22:00)
[2018-06-08] MEDS: ADVAIR HFA 115/21MCG INHALER INH ×2 (07:18→20:10)
[2018-06-08] MEDS: BECLOMETHASONE INH ×2 (07:18→20:11)
[2018-06-08 07:25] LABS: BEDSIDE GLUCOSE 117 MG/DL (83-110)
[2018-06-08 07:34] LABS: HEMOGLOBIN 12.2 g/dl (13.5-17.5); MEAN CORPUSCULAR HEMOGLOBIN 28.5 pg (27.0-33.0); MEAN CORPUSCULAR HGB CONC 32.1 g/dl (32.0-36.5); MEAN CORPUSCULAR VOLUME 88.8 fl (80.0-96.0); PLATELET COUNT, AUTOMATED 393 10^3/uL (150-450); RED BLOOD COUNT 4.28 10^6/uL (4.30-6.10); RED CELL DISTRIBUTION WIDTH 17.1 % (11.5-14.5); WHITE BLOOD COUNT 15.9 10^3/uL (4.0-10.0)
[2018-06-08] MEDS: HumaLOG INSULIN (NovoLOG) PER UNIT SC ×4 (07:56→21:39)
[2018-06-08 08:04] LABS: ANION GAP 7 MEQ/L (8-16); BLOOD UREA NITROGEN 18 MG/DL (7-18); CALCIUM LEVEL 9.1 MG/DL (8.8-10.2); CARBON DIOXIDE LEVEL 27 MEQ/L (21-32); CHLORIDE LEVEL 105 MEQ/L (98-107); CREATININE FOR GFR 0.89 MG/DL (0.70-1.30); GLOMERULAR FILTRATION RATE > 60.0 (>42); GLUCOSE, FASTING 128 MG/DL (70-100); POTASSIUM SERUM 4.2 MEQ/L (3.5-5.1); SODIUM LEVEL 139 MEQ/L (136-145)
[2018-06-08] MEDS: DOCUSATE SODIUM 100 MG CAP PO ×2 (09:23→21:39)
[2018-06-08] MEDS: CLOPIDOGREL 75 MG TAB PO (09:24)
[2018-06-08] MEDS: PANTOPRAZOLE 40MG TAB (PROTONIX) PO (09:24)
[2018-06-08] MEDS: MULTIVITAMINS/MINERALS THERAP 1 TAB PO (09:24)
[2018-06-08] MEDS: DESLORATADINE 5 MG TAB (CLARINEX) PO (09:24)
[2018-06-08] MEDS: OMEGA-3 1000MG CAPSULE PO (09:24)
[2018-06-08] MEDS: ENOXAPARIN 40 MG/0.4 ML SYRINGE (J1650) SC (09:24)
[2018-06-08] MEDS: ASPIRIN 81 MG ENTERIC TAB PO (09:24)
[2018-06-08 11:29] LABS: BEDSIDE GLUCOSE 149 MG/DL (83-110)
[2018-06-08 16:56] LABS: BEDSIDE GLUCOSE 125 MG/DL (83-110)
[2018-06-08 20:23] LABS: BEDSIDE GLUCOSE 118 MG/DL (83-110)
[2018-06-08] MEDS: ATORVASTATIN 20 MG TAB PO (21:39)
[2018-06-08] MEDS: RAMELTEON 8 MG TAB (ROZEREM) PO (21:39)
[2018-06-09] MEDS: LEVOTHYROXINE 125MCG TABLET (0.125MG) PO (05:50)
[2018-06-09] MEDS: SLF 3 ML SYR IV ×3 (05:50→21:17)
[2018-06-09] MEDS: LevoFLOXacin 500 MG TABLET PO (05:50)
[2018-06-09 06:46] LABS: HEMATOCRIT 38.8 % (42.0-52.0); HEMOGLOBIN 12.2 g/dl (13.5-17.5); MEAN CORPUSCULAR HGB CONC 31.4 g/dl (32.0-36.5); RED BLOOD COUNT 4.36 10^6/uL (4.30-6.10); RED CELL DISTRIBUTION WIDTH 16.6 % (11.5-14.5); WHITE BLOOD COUNT 15.9 10^3/uL (4.0-10.0)
[2018-06-09 06:55] LABS: PLATELET COUNT, AUTOMATED 578 10^3/uL (150-450)
[2018-06-09 07:12] LABS: ANION GAP 8 MEQ/L (8-16); BLOOD UREA NITROGEN 17 MG/DL (7-18); CALCIUM LEVEL 9.2 MG/DL (8.8-10.2); CARBON DIOXIDE LEVEL 25 MEQ/L (21-32); CHLORIDE LEVEL 108 MEQ/L (98-107); CREATININE FOR GFR 0.91 MG/DL (0.70-1.30); GLOMERULAR FILTRATION RATE > 60.0 (>42); GLUCOSE, FASTING 122 MG/DL (70-100); POTASSIUM SERUM 4.2 MEQ/L (3.5-5.1); SODIUM LEVEL 141 MEQ/L (136-145)
[2018-06-09] MEDS: PANTOPRAZOLE 40MG TAB (PROTONIX) PO (08:47)
[2018-06-09] MEDS: ENOXAPARIN 40 MG/0.4 ML SYRINGE (J1650) SC (08:47)
[2018-06-09] MEDS: HumaLOG INSULIN (NovoLOG) PER UNIT SC ×4 (08:47→20:40)
[2018-06-09] MEDS: DESLORATADINE 5 MG TAB (CLARINEX) PO (08:47)
[2018-06-09] MEDS: DOCUSATE SODIUM 100 MG CAP PO ×2 (08:47→21:17)
[2018-06-09] MEDS: CLOPIDOGREL 75 MG TAB PO (08:47)
[2018-06-09] MEDS: OMEGA-3 1000MG CAPSULE PO (08:47)
[2018-06-09] MEDS: ASPIRIN 81 MG ENTERIC TAB PO (08:48)
[2018-06-09] MEDS: MULTIVITAMINS/MINERALS THERAP 1 TAB PO (08:48)
[2018-06-09] MEDS: PREVNAR 13 VACCINE SYRINGE (CPT CODE:90670) IM (08:49)
[2018-06-09] MEDS: FLUBLOK(EGG FREE)(QUAD)INFLUENZA VACC 0.5ML SYRINGE (90682)18YRS&OLDER IM (08:52)
[2018-06-09] MEDS: ADVAIR HFA 115/21MCG INHALER INH ×2 (09:00→20:15)
[2018-06-09] MEDS: BECLOMETHASONE INH ×2 (11:29→20:15)
[2018-06-09 11:43] LABS: BEDSIDE GLUCOSE 158 MG/DL (83-110)
[2018-06-09 16:31] LABS: BEDSIDE GLUCOSE 156 MG/DL (83-110)
[2018-06-09 19:33] LABS: BEDSIDE GLUCOSE 139 MG/DL (83-110)
[2018-06-09] MEDS: ATORVASTATIN 20 MG TAB PO (21:17)
[2018-06-09] MEDS: RAMELTEON 8 MG TAB (ROZEREM) PO (21:17)
[2018-06-10] MEDS: LevoFLOXacin 500 MG TABLET PO (05:55)
[2018-06-10] MEDS: LEVOTHYROXINE 125MCG TABLET (0.125MG) PO (05:55)
[2018-06-10] MEDS: SLF 3 ML SYR IV ×2 (05:55→12:50)
[2018-06-10 06:07] LABS: BEDSIDE GLUCOSE 137 MG/DL (83-110)
[2018-06-10 07:17] LABS: HEMATOCRIT 36.6 % (42.0-52.0); HEMOGLOBIN 11.5 g/dl (13.5-17.5); MEAN CORPUSCULAR HEMOGLOBIN 28.3 pg (27.0-33.0); MEAN CORPUSCULAR HGB CONC 31.4 g/dl (32.0-36.5); MEAN CORPUSCULAR VOLUME 90.1 fl (80.0-96.0); PLATELET COUNT, AUTOMATED 534 10^3/uL (150-450); RED BLOOD COUNT 4.06 10^6/uL (4.30-6.10); RED CELL DISTRIBUTION WIDTH 16.5 % (11.5-14.5); WHITE BLOOD COUNT 14.2 10^3/uL (4.0-10.0)
[2018-06-10 07:30] LABS: ANION GAP 7 MEQ/L (8-16); BLOOD UREA NITROGEN 15 MG/DL (7-18); CALCIUM LEVEL 9.1 MG/DL (8.8-10.2); CARBON DIOXIDE LEVEL 25 MEQ/L (21-32); CHLORIDE LEVEL 108 MEQ/L (98-107); CREATININE FOR GFR 0.88 MG/DL (0.70-1.30); GLOMERULAR FILTRATION RATE > 60.0 (>42); GLUCOSE, FASTING 119 MG/DL (70-100); POTASSIUM SERUM 4.3 MEQ/L (3.5-5.1); SODIUM LEVEL 140 MEQ/L (136-145)
[2018-06-10] MEDS: ADVAIR HFA 115/21MCG INHALER INH (07:44)
[2018-06-10] MEDS: BECLOMETHASONE INH (07:44)
[2018-06-10] MEDS: DESLORATADINE 5 MG TAB (CLARINEX) PO (07:53)
[2018-06-10] MEDS: ENOXAPARIN 40 MG/0.4 ML SYRINGE (J1650) SC (07:53)
[2018-06-10] MEDS: DOCUSATE SODIUM 100 MG CAP PO (07:53)
[2018-06-10] MEDS: ASPIRIN 81 MG ENTERIC TAB PO (07:53)
[2018-06-10] MEDS: MULTIVITAMINS/MINERALS THERAP 1 TAB PO (07:53)
[2018-06-10] MEDS: OMEGA-3 1000MG CAPSULE PO (07:53)
[2018-06-10] MEDS: PANTOPRAZOLE 40MG TAB (PROTONIX) PO (07:53)
[2018-06-10] MEDS: CLOPIDOGREL 75 MG TAB PO (07:53)
[2018-06-10] MEDS: HumaLOG INSULIN (NovoLOG) PER UNIT SC ×3 (07:54→17:30)
[2018-06-10 11:58] LABS: BEDSIDE GLUCOSE 137 MG/DL (83-110)
== END 2018-06-10 18:10 | disposition home or self-care (01) | DRG 871 ==
LOC: M PCU 06-02 16:22 → M MS4PR 06-08 16:43 → M ED 10:10 → M ED INP 17:03 → M PCU 19:43 → M ICU 20:39
PROVIDERS: Internal Medicine
PROC: 0F943ZZ Drainage of Gallbladder, Percutaneous Approach (ICD-10-PCS; principal; 2018-05-30)
DX: A41.9 Sepsis, unspecified organism (principal); I21.4 Non-ST elevation (NSTEMI) myocardial infarction; J69.0 Pneumonitis due to inhalation of food and vomit; J96.91 Respiratory failure, unspecified with hypoxia; R65.21 Severe sepsis with septic shock; K80.00 Calculus of gallbladder with acute cholecystitis without obstruction; N17.9 Acute kidney failure, unspecified; E87.1 Hypo-osmolality and hyponatremia; E87.2 Acidosis; E11.9 Type 2 diabetes mellitus without complications; I50.9 Heart failure, unspecified; E78.5 Hyperlipidemia, unspecified; E03.9 Hypothyroidism, unspecified; K21.9 Gastro-esophageal reflux disease without esophagitis; I71.4 Abdominal aortic aneurysm, without rupture; G47.33 Obstructive sleep apnea (adult) (pediatric); Z79.82 Long term (current) use of aspirin; Z79.899 Other long term (current) drug therapy; I25.10 Atherosclerotic heart disease of native coronary artery without angina pectoris; Z95.2 Presence of prosthetic heart valve; Z95.1 Presence of aortocoronary bypass graft

== ENCOUNTER → 2018-06-21 | Outpatient (CLI) | payer MEDICARE, BC, OTHER ==
[~2018-06-21] MED LIST changes: +CONRAY-43 43% 50ML VIAL (Q9960) As Ordered; +ISOVUE-300 61% 50ML VIAL (Q9967) As Ordered; -ISOVUE-370 76% 100ML VIAL (Q9967) As Ordered
== END ==
LOC: M RADPRO 11:15
DX: K81.0 Acute cholecystitis (principal)
CPT/HCPCS: 47531

== ENCOUNTER → 2018-07-09 | Outpatient (REF) | payer MEDICARE, OTHER ==
[2018-07-09 17:27] LABS: CREATININE FOR GFR 1.21 MG/DL (0.70-1.30); GLOMERULAR FILTRATION RATE > 60.0 (>42)
== END ==
LOC: M LABDRWCV 16:25
DX: Z98.890 Other specified postprocedural states (principal)
CPT/HCPCS: 82565

== ENCOUNTER → 2018-09-17 | Outpatient (CLI) | payer MEDICARE, OTHER ==
[~2018-09-17] MED LIST changes: +ASPI1TAB PO; +ATOR80TA59 PO; +CENTCHW3 PO; -CONRAY-43 43% 50ML VIAL (Q9960) As Ordered; +DESL5TAB4 PO; +EZET10TA PO; +FENO150C PO; +FENO160T10 PO; +FISH1000 PO; +FURO40TA2 PO; +INVO300T PO; -ISOVUE-300 61% 50ML VIAL (Q9967) As Ordered; +LEVA1TAB2 PO; +LEVO125T4 PO; +METF850T4 PO; +NITR4TASL PO; +PANT20TA2 PO; +PLAV1TAB2 PO; +QVAR80AE8 INH; +VARE1TA PO; +VITMTA PO
--- NOTE | 2018-09-17 15:44 | REP ---
Chest two views HISTORY: Cough Comparison: 05/30/2018 There is elevation of the right hemidiaphragm. The lungs are clear. The heart is normal in size. The pulmonary vasculature is normal in appearance. The bony structure is intact. IMPRESSION: No acute disease.
== END ==
LOC: M CLY 14:53
PROVIDERS: ATTEND Physician Assistant
DX: R05 Cough (principal)
CPT/HCPCS: 71046; 87804; G0463

== ENCOUNTER → 2018-12-03 | Outpatient (REF) | payer MEDICARE, OTHER ==
[~2018-12-03] MED LIST changes: -ASPI1TAB PO; +ASPI81TA26 PO
[2018-12-03 14:13] LABS: TOTAL PROTEIN 7.8 GM/DL (6.4-8.2)
[2018-12-03 14:19] LABS: TOTAL PROTEIN,RANDOM URINE 16.3 MG/DL (0.0-12.0); URINE TOTAL PROTEIN 16.3 MG/DL (0-12)
[2018-12-05 13:33] LABS: ALBUMIN % 57.4 % (55.8-66.1)
[2018-12-05 13:35] LABS: ALBUMIN 4.48 GM/DL (3.29-5.55); ALPHA-1-GLOBULIN % 4.2 % (2.9-4.9); ALPHA-1-GLOBULINS 0.33 GM/DL (0.17-0.41); ALPHA-2-GLOBULINS 1.08 GM/DL (0.42-0.99); ALPHA-2-GLOBULINS % 13.9 % (7.1-11.8); BETA-1-GLOBULINS 0.67 GM/DL (0.28-0.60); BETA-1-GLOBULINS % 8.6 % (4.7-7.2); BETA-2-GLOBULINS 0.37 GM/DL (0.19-0.55); BETA-2-GLOBULINS % 4.8 % (3.2-6.5); GAMMA GLOBULIN % 11.1 % (11.1-18.8); GAMMA GLOBULINS 0.87 GM/DL (0.65-1.58)
[2018-12-05 13:50] LABS: UPEP INTERPRETATION NO M-SPIKE NOTED; URINE VOLUME RANDOM ML
== END ==
LOC: M LAB REF 13:15
PROVIDERS: ATTEND Internal Medicine Nephrology
DX: E83.52 Hypercalcemia (principal); E11.22 Type 2 diabetes mellitus with diabetic chronic kidney disease; R80.9 Proteinuria, unspecified

== ENCOUNTER → 2018-12-06 | Outpatient (CLI) | payer MEDICARE, BC, OTHER ==
--- NOTE | 2018-12-06 16:54 | REP ---
HISTORY: Kidney disease. COMPARISON: None. The right kidney measures 13.3 x 5.9 x 6.4 cm. The renal cortex is slightly thinned with slightly increased echoes with less than optimal cortical medullary differentiation. There are no cystic or solid masses. The left kidney measures 10.1 x 4.5 x 5.2 cm. The cortical echoes are increased and there is less than optimal cortical medullary differentiation. There are no cystic or solid masses. There is renal cortical thinning. IMPRESSION: Bilateral chronic renal changes as described above. Electronically Signed by Derrick Lou DO 12/06/2018 05:13 P
== END ==
LOC: M RAD 10:05
PROVIDERS: ATTEND Internal Medicine Nephrology
DX: N18.3 Chronic kidney disease, stage 3 (moderate) (principal)

== ENCOUNTER 2019-01-02 12:26 | Day surgery (SDC) | payer MEDICARE, BC, OTHER ==
[~2019-01-02] VITALS: Ht 182.9 cm; Wt 95.6 kg
[~2019-01-02 12:26] MED LIST changes: +ACETAMINOPHEN 325 MG TAB PO PRN; +BSS with VANC/TOB/EPI for EYE CASES IR ONE; +CYCLOPENTOLATE 2% OPHTH SOLN 2ML BTL OD ONE; +HEALON DUET PRO(HEALON 10MG/ML 0.55ML & HEALON ENDOCOAT 30MG/ML 0.85ML) As Ordered ONE; +LEVO112T2 PO; +LIDOCAINE 1% SDV 5 ML VIAL As Ordered ONE; +LIDOCAINE 3.5 % 1ML OPHTH TOPICAL GEL OU ONE; +MIDAZOLAM INJ 2 MG/2 ML VIAL (J2250) As Ordered ONE; +MOXIFLOXACIN IN BSS 0.25MG/0.25ML INTRACAMERAL INJ (OR EYE ONLY)(J2280) As Ordered ONE; +OFLOXACIN 0.3 % (OCUFLOX) OPTH SOL 5ML OD ONE; +PHENYLEPHRINE 2.5% OPHTH SOL 2ML OD ONE; +PHENYLEPHRINE HCL 10 % OPHTH. SOL 5ML OD PRN; +POVIDONE-IODINE 5% OPHTH PREP SOL 30ML As Ordered ONE; +TRIAMCINOLONE PRES FR 40 MG/ML 1ML(TRIESENCE)(OR EYE ONLY)(J3300 PER 1MG) As Ordered ONE; +TROPICAMIDE 1% OPHTH SOLN 2ML OD ONE; +fentaNYL 100 MCG/2 ML INJECTION (J3010) As Ordered ONE
[2019-01-02] MEDS ORDERED: BSS with VANC/TOB/EPI for EYE CASES IR ONE (14:00)
[2019-01-02] MEDS ORDERED: MIDAZOLAM INJ 2 MG/2 ML VIAL (J2250) As Ordered ONE (14:06)
[2019-01-02] MEDS: HEALON DUET PRO(HEALON 10MG/ML 0.55ML & HEALON ENDOCOAT 30MG/ML 0.85ML) As Ordered ONE ×2 (14:40→15:31)
[2019-01-02] MEDS: POVIDONE-IODINE 5% OPHTH PREP SOL 30ML As Ordered ONE ×2 (14:40→15:31)
[2019-01-02] MEDS: MOXIFLOXACIN IN BSS 0.25MG/0.25ML INTRACAMERAL INJ (OR EYE ONLY)(J2280) As Ordered ONE ×2 (14:40→15:37)
[2019-01-02] MEDS: LIDOCAINE 1% SDV 5 ML VIAL As Ordered ONE ×2 (14:40→15:32)
[2019-01-02] MEDS ORDERED: LIDOCAINE 2% W/EPIN INJ 20ML **PRES FREE As Ordered ONE (15:25)
[2019-01-02] MEDS ORDERED: AcetaZOLAMIDE 500 MG ER CAP As Ordered ONE (16:02)
[2019-01-02 16:18] VITALS: BP 143/65
[2019-01-02] MEDS ORDERED: TRIMETHOBENZAMIDE 300 MG CAP PO PRN (16:30)
[2019-01-02] MEDS ORDERED: AcetaZOLAMIDE 500 MG ER CAP PO ONE (16:30)
== END 2019-01-02 16:22 | disposition home or self-care (01) ==
LOC: M SDC 12:26
PROVIDERS: ATTEND Ophthalmology
DX: H25.9 Unspecified age-related cataract (principal); I25.10 Atherosclerotic heart disease of native coronary artery without angina pectoris; I25.2 Old myocardial infarction; Z98.61 Coronary angioplasty status; Z79.02 Long term (current) use of antithrombotics/antiplatelets; Z79.82 Long term (current) use of aspirin; J44.9 Chronic obstructive pulmonary disease, unspecified; E11.9 Type 2 diabetes mellitus without complications; G47.30 Sleep apnea, unspecified; E03.9 Hypothyroidism, unspecified; E78.5 Hyperlipidemia, unspecified
CPT/HCPCS: 66984; 92015; J2250; J2280; J3010; J3300; V2632

== ENCOUNTER → 2020-01-12 | Outpatient (CLI) | payer MEDICARE, BC, OTHER ==
[~2020-01-12] MED LIST changes: -ACETAMINOPHEN 325 MG TAB PO PRN; -BSS with VANC/TOB/EPI for EYE CASES IR ONE; -CYCLOPENTOLATE 2% OPHTH SOLN 2ML BTL OD ONE; +DESL1TAB3 PO; -DESL5TAB4 PO; -EZET10TA PO; +EZET10TA21 PO; -HEALON DUET PRO(HEALON 10MG/ML 0.55ML & HEALON ENDOCOAT 30MG/ML 0.85ML) As Ordered ONE; -LIDOCAINE 1% SDV 5 ML VIAL As Ordered ONE; -LIDOCAINE 3.5 % 1ML OPHTH TOPICAL GEL OU ONE; -MIDAZOLAM INJ 2 MG/2 ML VIAL (J2250) As Ordered ONE; -MOXIFLOXACIN IN BSS 0.25MG/0.25ML INTRACAMERAL INJ (OR EYE ONLY)(J2280) As Ordered ONE; +OCUVCAP2 PO; -OFLOXACIN 0.3 % (OCUFLOX) OPTH SOL 5ML OD ONE; -PHENYLEPHRINE 2.5% OPHTH SOL 2ML OD ONE; -PHENYLEPHRINE HCL 10 % OPHTH. SOL 5ML OD PRN; -POVIDONE-IODINE 5% OPHTH PREP SOL 30ML As Ordered ONE; -TRIAMCINOLONE PRES FR 40 MG/ML 1ML(TRIESENCE)(OR EYE ONLY)(J3300 PER 1MG) As Ordered ONE; -TROPICAMIDE 1% OPHTH SOLN 2ML OD ONE; -fentaNYL 100 MCG/2 ML INJECTION (J3010) As Ordered ONE
== END ==
LOC: M LABSMTC 12:28
PROVIDERS: ATTEND Anesthesiology
DX: Z03.818 Encounter for observation for suspected exposure to other biological agents ruled out (principal); Z11.59 Encounter for screening for other viral diseases
CPT/HCPCS: 87486; 87581; 87633; 87798; C9803

== ENCOUNTER 2020-01-14 08:13 | Day surgery (SDC) | payer MEDICARE, BC, OTHER ==
[~2020-01-14] VITALS: Ht 182.9 cm; Wt 97.1 kg
[~2020-01-14 08:13] MED LIST changes: +LIDOCAINE 2% 100MG/5ML SDV (FOR ANES.) As Ordered ONE; +NS 1,000 ML IV ONE; +propofoL 200 MG/20 ML VIAL As Ordered ONE
[2020-01-14] MEDS ORDERED: GLYCOPYRROLATE INJ 0.2 MG/ML 2 ML VIAL As Ordered ONE (09:22)
--- NOTE | 2020-01-14 09:36 | ROOR ---
Patient Name: Cj Heller Procedure Date: 01/14/2020 9:09 AM Date of : 1940 Age: 79 Room: [facility] Gender: Male Note Status: Finalized Procedure: Colonoscopy Indications: High risk colon cancer surveillance: Personal history of colonic polyps Providers: DO Chris Traylor MD: TYESHA HOANG MD Requesting Provider: Medicines: Propofol per Anesthesia Complications: No immediate complications. Procedure: Pre-Anesthesia Assessment: - Prior to the procedure, a History and Physical was performed, and patient medications and allergies were reviewed. The patient is competent. The risks and benefits of the procedure and the sedation options and risks were discussed with the patient. All questions were answered and informed consent was obtained. Patient identification and proposed procedure were verified by the physician, the nurse, the anesthesiologist and the aircraft maintenance technician in the endoscopy suite. Mental Status Examination: alert and oriented. Airway Examination: normal oropharyngeal airway and neck mobility. Respiratory Examination: clear to auscultation. CV Examination: normal. Prophylactic Antibiotics: The patient does not require prophylactic antibiotics. Prior Anticoagulants: The patient has taken no previous anticoagulant or antiplatelet agents. ASA Grade Assessment: IV - A patient with severe systemic disease that is a constant threat to life. After reviewing the risks and benefits, the patient was deemed in satisfactory condition to undergo the procedure. The anesthesia plan was to use monitored anesthesia care (MAC). Immediately prior to administration of medications, the patient was re-assessed for adequacy to receive sedatives. The heart rate, respiratory rate, oxygen saturations, blood pressure, adequacy of pulmonary ventilation, and response to care were monitored throughout the procedure. The physical status of the patient was re-assessed after the procedure. The Colonoscope was introduced through the anus and advanced to the cecum, identified by appendiceal orifice and ileocecal valve. The colonoscopy was performed without difficulty. The patient tolerated the procedure well. Findings: A less than 5 mm polyp was found in the transverse colon. The polyp was pedunculated. The polyp was removed with a hot snare. Resection and retrieval were complete. Estimated blood loss was minimal. Multiple medium-mouthed diverticula were found in the sigmoid colon. The exam was otherwise without abnormality on direct and retroflexion views. Impression: - One less than 5 mm polyp in the transverse colon, removed with a hot snare. Resected and retrieved. - Diverticulosis in the sigmoid colon. - The examination was otherwise normal on direct and retroflexion views. Recommendation: - Patient has a contact number available for emergencies. The signs and symptoms of potential delayed complications were discussed with the patient. Return to normal activities tomorrow. Written discharge instructions were provided to the patient. - Repeat colonoscopy in 3 - 5 years for surveillance based on pathology results. - Return to my office at appointment to be scheduled. - Await pathology results. Bob Yao DO 01/14/2020 9:35:39 AM Electronically signed by Bob Yao DO Number of Addenda: 0 Note Initiated On: 01/14/2020 9:09 AM Estimated Blood Loss: Estimated blood loss was minimal.
[2020-01-14 10:00] VITALS: BP 174/85
== END 2020-01-14 10:16 | disposition home or self-care (01) ==
LOC: M OPP 08:13
PROVIDERS: ATTEND Surgery
DX: D12.3 Benign neoplasm of transverse colon (principal); K57.30 Diverticulosis of large intestine without perforation or abscess without bleeding; Z86.010 Personal history of colon polyps; Z80.0 Family history of malignant neoplasm of digestive organs; R19.5 Other fecal abnormalities; F17.210 Nicotine dependence, cigarettes, uncomplicated; I25.2 Old myocardial infarction; Z79.82 Long term (current) use of aspirin; Z79.84 Long term (current) use of oral hypoglycemic drugs; Z79.899 Other long term (current) drug therapy; Z95.5 Presence of coronary angioplasty implant and graft; Z86.79 Personal history of other diseases of the circulatory system

== ENCOUNTER → 2021-01-21 | Outpatient (CLI) | payer MEDICARE, BC, OTHER ==
[~2021-01-21] MED LIST changes: -LIDOCAINE 2% 100MG/5ML SDV (FOR ANES.) As Ordered ONE; +LISI-898 PO; -NS 1,000 ML IV ONE; -PANT20TA2 PO; +PANT20TA6 PO; -propofoL 200 MG/20 ML VIAL As Ordered ONE
== END ==
LOC: M LABSMTC 10:37
PROVIDERS: ATTEND Anesthesiology
DX: Z01.812 Encounter for preprocedural laboratory examination (principal); Z20.822 Contact with and (suspected) exposure to COVID-19

== ENCOUNTER 2021-01-26 07:03 | Day surgery (SDC) | payer MEDICARE, BC, OTHER ==
[~2021-01-26] VITALS: Ht 182.9 cm; Wt 103.4 kg
[~2021-01-26 07:03] MED LIST changes: +NS 1,000 ML IV ONE
[2021-01-26] MEDS ORDERED: propofoL 200 MG/20 ML VIAL As Ordered ONE (08:08)
[2021-01-26] MEDS ORDERED: LIDOCAINE 2% 100MG/5ML SDV (FOR ANES.) As Ordered ONE (08:08)
[2021-01-26] MEDS ORDERED: fentaNYL 100 MCG/2 ML INJECTION (J3010) As Ordered ONE (08:09)
[2021-01-26] MEDS ORDERED: ePHEDrine SULFATE 25 MG/5 ML(5MG/ML) SYRINGE As Ordered ONE (08:31)
--- NOTE | 2021-01-26 08:32 | ROOR ---
Patient Name: Cj Heller Procedure Date: 01/26/2021 8:16 AM Date of : 1940 Age: 80 Room: [facility] Gender: Male Note Status: Finalized Procedure: Upper Endoscopy + Biopsies Indications: Heartburn, Heme positive stool, Nausea with vomiting Providers: Eduardo Gomez MD Referring MD: TYESHA HOANG MD Requesting Provider: Medicines: Monitored Anesthesia Care Complications: No immediate complications. Procedure: Pre-Anesthesia Assessment: - The heart rate, respiratory rate, oxygen saturations, blood pressure, adequacy of pulmonary ventilation, and response to care were monitored throughout the procedure. The Endoscope was introduced through the mouth, and advanced to the second part of duodenum. The upper GI endoscopy was accomplished without difficulty. The patient tolerated the procedure well. Findings: The Z-line was regular and was found 50 cm from the incisors. Multiple biopsies were obtained with cold forceps for evaluation to rule out Davis's Esophagus randomly at the gastroesophageal junction. Localized mild inflammation characterized by congestion (edema) and erythema was found in the gastric antrum. Biopsies were taken with a cold forceps for Helicobacter pylori testing. The exam of the duodenum was otherwise normal. Impression: - Z-line regular, 50 cm from the incisors. - Mucosal changes suspicious for gastritis. Biopsied. - Multiple biopsies were obtained at the gastroesophageal junction. - The examination was otherwise normal. Recommendation: - Patient has a contact number available for emergencies. The signs and symptoms of potential delayed complications were discussed with the patient. Return to normal activities tomorrow. Written discharge instructions were provided to the patient. - High fiber diet. - Discharge patient to home. - Follow an antireflux regimen. - Resume Plavix (clopidogrel) at prior dose today. - Await pathology results. - Telephone GI clinic for pathology results in 1 week. - Return to referring physician. - The findings and recommendations were discussed with the patient's family. Procedure Code(s): --- Professional --- 21481, Esophagogastroduodenoscopy, flexible, transoral; with biopsy, single or multiple Diagnosis Code(s): --- Professional --- K31.89, Other diseases of stomach and duodenum R12, Heartburn R19.5, Other fecal abnormalities R11.2, Nausea with vomiting, unspecified CPT copyright 2019 [employer]. All rights reserved. The codes documented in this report are preliminary and upon projector operator review may be revised to meet current compliance requirements. Eduardo Gomez MD Eduardo Gomez MD 01/26/2021 8:32:26 AM Electronically signed by Eduardo Gomez MD Number of Addenda: 0 Note Initiated On: 01/26/2021 8:16 AM Estimated Blood Loss: Estimated blood loss: none.
[2021-01-26 08:55] VITALS: BP 135/63
== END 2021-01-26 08:57 | disposition home or self-care (01) ==
LOC: M OPP 07:03
PROVIDERS: ATTEND Internal Medicine Gastroenterology
DX: K31.89 Other diseases of stomach and duodenum (principal); R12 Heartburn; R19.5 Other fecal abnormalities; K92.0 Hematemesis; F17.210 Nicotine dependence, cigarettes, uncomplicated; Z79.82 Long term (current) use of aspirin; Z79.899 Other long term (current) drug therapy; Z80.0 Family history of malignant neoplasm of digestive organs; Z86.010 Personal history of colon polyps
CPT/HCPCS: 43239; 88305; J3010

== ENCOUNTER → 2021-01-28 | Outpatient (CLI) | payer MEDICARE, BC, OTHER ==
[~2021-01-28] MED LIST changes: -NS 1,000 ML IV ONE
--- NOTE | 2021-01-28 09:05 | REP ---
INDICATION: NAUSEA WITH VOMITING,USPECIFIED. COMPARISON: Comparison abdominal CT study June 04, 2018.. TECHNIQUE: Transabdominal right upper quadrant sonography. FINDINGS: Scanning through the right upper quadrant of the abdomen demonstrates a normal sized, thin-walled gallbladder containing a mobile shadowing gallstone. No pericholecystic fluid is seen.. Common bile duct is normal measuring 0.5 cm in greatest diameter. No focal liver lesion is seen. Liver size is normal. No pancreatic abnormality is observed. No right renal abnormality is seen. There is no evidence of ascites. The right kidney measures 512.2 x 7.6 x 5.9 cm. IMPRESSION: Cholelithiasis. Otherwise negative right upper quadrant sonogram.. <Electronically signed by Christiano Jackson > 01/28/21 0902
== END ==
LOC: M RAD 07:17
PROVIDERS: ATTEND Internal Medicine Gastroenterology
DX: R11.2 Nausea with vomiting, unspecified (principal); K80.20 Calculus of gallbladder without cholecystitis without obstruction

== ENCOUNTER 2021-05-11 09:49 | Emergency (ER) | payer MEDICARE, BC, OTHER ==
[~2021-05-11] VITALS: Ht 180.3 cm; Wt 122.7 kg
[2021-05-11] MEDS ORDERED: ACETAMINOPHEN TAB 650MG DOSE (2X325MG) PO ONE (10:50)
--- NOTE | 2021-05-11 11:09 | REP ---
INDICATION: DYSPNEA/COUGH COMPARISON: 09/17/2018 TECHNIQUE: Portable AP view of the chest FINDINGS: Mediastinum and cardiac silhouette are stable. Lung muro demonstrate diffuse chronic interstitial changes. Subtle superimposed atelectasis and early airspace disease cannot be excluded. Correlation is required. No discrete focal consolidation or effusion. No pneumothorax. IMPRESSION: Chronic changes similar to prior examination. Cannot exclude subtle superimposed acute atelectasis or early airspace disease. <Electronically signed by Oskar Sampson > 05/11/21 110
[2021-05-11 11:14] LABS: BASO # 0.1 10^3/uL (0.0-0.2); BASO % 0.8 % (0.0-1.0); EOS % 0.5 % (0.0-3.0); HEMATOCRIT 39.2 % (42.0-52.0); HEMOGLOBIN 12.5 g/dl (13.5-17.5); LYMPH # 1.2 10^3/uL (1.5-5.0); LYMPH % 16.2 % (24.0-44.0); MEAN CORPUSCULAR HEMOGLOBIN 28.9 pg (27.0-33.0); MEAN CORPUSCULAR HGB CONC 31.9 g/dl (32.0-36.5); MEAN CORPUSCULAR VOLUME 90.7 fl (80.0-96.0); MONO # 0.9 10^3/uL (0.0-0.8); MONO % 12.7 % (2.0-8.0); NEUTROPHILS # 5.1 10^3/uL (1.5-8.5); NEUTROPHILS % 69.3 % (36.0-66.0); PLATELET COUNT, AUTOMATED 225 10^3/uL (150-450); RED BLOOD COUNT 4.32 10^6/uL (4.30-6.10); WHITE BLOOD COUNT 7.4 10^3/uL (4.0-10.0)
[2021-05-11 11:44] LABS: VENOUS BASE EXCESS -0.5 (-2.0-2.0); VENOUS HCO3 26.5 MEQ/L (23.0-27.0); VENOUS O2 SATURATION 77.4 % (60.0-80.0); VENOUS PARTIAL PRESSURE CO2 52.8 mmHg (38.0-50.0); VENOUS PARTIAL PRESSURE O2 46.8 mmHg (30.0-50.0); VENOUS PH 7.318 UNITS (7.330-7.430); VENOUS STANDARD HCO3 23.6 MEQ/L; VENOUS TOTAL CO2 28.1 MEQ/L (24.0-28.0)
[2021-05-11 12:40] LABS: ALBUMIN 3.8 GM/DL (3.2-5.2); ALT/SGPT 31 U/L (12-78); BILIRUBIN,DIRECT 0.1 MG/DL (0.0-0.2); BILIRUBIN,TOTAL 0.4 MG/DL (0.2-1.0); BLOOD UREA NITROGEN 38 MG/DL (7-18); CALCIUM LEVEL 9.8 MG/DL (8.8-10.2); CARBON DIOXIDE LEVEL 25 MEQ/L (21-32); CHLORIDE LEVEL 104 MEQ/L (98-107); CK-MB VALUE MASS < 1.0 NG/ML (<3.6); CPK CREATINE PHOSPHOKINASE 101 U/L (39-308); CREATININE FOR GFR 2.04 MG/DL (0.70-1.30); GLOMERULAR FILTRATION RATE 33.7 (>42); GLUCOSE, FASTING 108 MG/DL (70-100); MB/CK RELATIVE INDEX 0.99 (< OR =4); NT-PRO BNP 381 PG/ML (<450); POTASSIUM SERUM 5.4 MEQ/L (3.5-5.1); SODIUM LEVEL 136 MEQ/L (136-145); TOTAL PROTEIN 7.9 GM/DL (6.4-8.2); TROPONIN I < 0.02 NG/ML (< 0.10)
[2021-05-11 12:58] LABS: INR 1.05; PROTHROMBIN TIME 14.1 SECONDS (12.7-14.5)
[2021-05-11] MEDS ORDERED: NS 1,000 ML IV ONE (13:50)
[2021-05-11] MEDS ORDERED: dexameTHASONE 20MG/5ML VIAL (J1100 PER 1MG) IV ONE (13:50)
[2021-05-11] MEDS: COMBIVENT RESPIMAT 100-20MCG INHALER 4GM INH SCH ×3 (14:22→14:59)
[2021-05-11 16:46] VITALS: BP 123/85
[2021-05-11] MEDS ORDERED: PRED20TA PO (16:51)
[2021-05-11] MEDS ORDERED: PROA1AER2 INH (16:51)
--- NOTE | 2021-05-11 17:50 | ECGEPIP ---
[facility] - ED Test Date: 2021-05-11 Pat Name: LADARIUS VENTURA Department: Room: - Gender: Male Rn Eligibility: jacky gray : 1940 Requested By: LADARIUS Pickett Order Number: [id number] Reading MD: Diamond Arizmendi Measurements Intervals [place] Rate: 64 P: 26 WV: 210 QRS: -41 QRSD: 106 T: 165 QT: 364 QTc: 375 Interpretive Statements Sinus rhythm with 1st degree AV block Left axis deviation Minimal voltage criteria for LVH, may be normal variant ( Brent product ) ST & T wave abnormality, consider ischemia decreased rate 05/31/18 Electronically Signed on 05-11-2021 17:50:01 EDT by Diamond Arizmendi
== END 2021-05-11 17:30 | disposition home or self-care (01) ==
LOC: EDSEX 09:49 → M ED 09:49 → EDBD 09:49 → M ED 17:30
DX: R06.02 Shortness of breath (principal); B34.8 Other viral infections of unspecified site; I44.0 Atrioventricular block, first degree; I50.9 Heart failure, unspecified; I25.10 Atherosclerotic heart disease of native coronary artery without angina pectoris; E78.5 Hyperlipidemia, unspecified; K21.9 Gastro-esophageal reflux disease without esophagitis; G47.33 Obstructive sleep apnea (adult) (pediatric); Z87.891 Personal history of nicotine dependence; Z95.5 Presence of coronary angioplasty implant and graft; Z86.79 Personal history of other diseases of the circulatory system; Z79.82 Long term (current) use of aspirin; Z79.84 Long term (current) use of oral hypoglycemic drugs; Z79.899 Other long term (current) drug therapy
CPT/HCPCS: 36415; 71045; 80048; 80076; 82550; 82553; 82803; 83605; 83880; 84443; 84484; 85025; 85610; 87040; 87798; 93005; 93041; 94640; 96361; 96374; 99285; J1100

== ENCOUNTER → 2021-05-13 | Outpatient (REF) | payer MEDICARE, BC, OTHER ==
[~2021-05-13] MED LIST changes: +PRED20TA PO; +PROA1AER2 INH
[2021-05-13 17:09] LABS: CREATININE FOR GFR 2.03 MG/DL (0.70-1.30); GLOMERULAR FILTRATION RATE 33.9 (>42); POTASSIUM SERUM 4.9 MEQ/L (3.5-5.1)
== END ==
LOC: M LABDRAWC 15:45
PROVIDERS: ATTEND Internal Medicine
DX: E86.0 Dehydration (principal)

== ENCOUNTER 2024-03-05 08:51 | Day surgery (SDC) | payer MEDICARE, BC ==
[~2024-03-05] VITALS: Ht 182.9 cm; Wt 90.7 kg
[~2024-03-05 08:51] MED LIST changes: +ARNU1INH INH; +CLOP75TA99 PO; +COQ150CH PO; -LISI-898 PO; +LISI5TAB11 PO; +OMEG12003 PO; +ONDA-83 PO; -PLAV1TAB2 PO; +PRESCAP PO; +THERTAB52 PO
[2024-03-05] MEDS: NS 1,000 ML IV ONE (09:24)
[2024-03-05] MEDS ORDERED: ePHEDrine SULFATE 25 MG/5 ML(5MG/ML) SYRINGE As Ordered ONE (10:20)
[2024-03-05] MEDS ORDERED: propofoL 200 MG/20 ML VIAL As Ordered ONE (10:22)
[2024-03-05 10:40] VITALS: TEMP 97.1
[2024-03-05 10:54] VITALS: BP 101/48; O2SAT 95
== END 2024-03-05 11:01 | disposition home or self-care (01) ==
LOC: M OPP 08:51
PROVIDERS: ATTEND Surgery
DX: Z12.11 Encounter for screening for malignant neoplasm of colon (principal); Z86.010 Personal history of colon polyps; D12.2 Benign neoplasm of ascending colon; K64.0 First degree hemorrhoids; K57.30 Diverticulosis of large intestine without perforation or abscess without bleeding; F17.290 Nicotine dependence, other tobacco product, uncomplicated; I25.10 Atherosclerotic heart disease of native coronary artery without angina pectoris; E11.9 Type 2 diabetes mellitus without complications; G47.30 Sleep apnea, unspecified; Z99.89 Dependence on other enabling machines and devices; Z86.74 Personal history of sudden cardiac arrest; Z95.5 Presence of coronary angioplasty implant and graft; Z88.8 Allergy status to other drugs, medicaments and biological substances

== ENCOUNTER 2025-04-15 07:46 | Day surgery (SDC) | payer MEDICARE, BC ==
[~2025-04-15] VITALS: Ht 180.3 cm; Wt 84.3 kg
[~2025-04-15 07:46] MED LIST changes: +AMLO1TAB24; +FARX1TAB5
[2025-04-15] MEDS ORDERED: LIDOCAINE 2% 100 MG/5 ML SDV (FOR ANES.) As Ordered ONE (08:44)
[2025-04-15 08:46] VITALS: TEMP 98.9
[2025-04-15 09:09] VITALS: BP 145/76; O2SAT 99
== END 2025-04-15 09:15 | disposition home or self-care (01) ==
LOC: M OPP 07:46
PROVIDERS: ATTEND Surgery
DX: D12.6 Benign neoplasm of colon, unspecified (principal); K57.30 Diverticulosis of large intestine without perforation or abscess without bleeding; K64.1 Second degree hemorrhoids; Z86.0100 Personal history of colon polyps, unspecified; Z86.73 Personal history of transient ischemic attack (TIA), and cerebral infarction without residual deficits; G47.30 Sleep apnea, unspecified; Z88.8 Allergy status to other drugs, medicaments and biological substances; Z91.048 Other nonmedicinal substance allergy status; Z79.51 Long term (current) use of inhaled steroids; Z79.82 Long term (current) use of aspirin; Z79.02 Long term (current) use of antithrombotics/antiplatelets; Z79.899 Other long term (current) drug therapy; J44.9 Chronic obstructive pulmonary disease, unspecified; Z87.891 Personal history of nicotine dependence